=== PATIENT | male | born 1950 | race Caucasian/White ===

== ENCOUNTER → 2019-11-25 | Outpatient (CLI) | payer BC ==
--- NOTE | 2019-11-25 07:37 | US ---
EXAMINATION TYPE: US duplex aorta DATE OF EXAM: 11/25/2019 COMPARISON: NONE CLINICAL HISTORY: I10 essential htn. AAA EXAM MEASUREMENTS: Abdominal Aorta: Proximal: 2.4 x 2.3cm Mid: 2.0 x 2.1cm Distal: 1.7 x 1.8cm Bifurcation: obscured by overlying midline bowel gas Difficult study due to patient body habitus Limited visualization of abdominal aorta, visualized portions appear wnl IMPRESSION: NO AAA
== END | disposition home or self-care (01) ==
LOC: RADUSWWP 07:03
PROVIDERS: ATTEND Physician Assistant
DX: I10 Essential (primary) hypertension (principal)
CPT/HCPCS: 93979

== ENCOUNTER 2022-10-28 16:41 | Emergency (ER) | payer MEDICARE ==
[2022-10-28 16:45] VITALS: BP 161/80; TEMP 97.9
--- NOTE | 2022-10-28 17:19 | XR ---
EXAMINATION TYPE: XR chest 2V DATE OF EXAM: 10/28/2022 COMPARISON: NONE HISTORY: Shortness of breath TECHNIQUE: Frontal and lateral views of the chest are obtained. FINDINGS: Scattered senescent parenchymal changes noted. Hyperinflation compatible with COPD. Increased basilar density may reflect underlying atelectasis or developing infiltrates. Other small e ffusions versus pleural thickening at the costophrenic angles. Heart size is stable. Mediastinal structures are stable and grossly unremarkable. No evidence for hilar prominence. Degenerative changes dorsal spine. IMPRESSION: 1. Increased basilar density may reflect underlying atelectasis or developing infiltrates. Other smal l effusions versus pleural thickening at the costophrenic angles.
[2022-10-28 17:37] LABS: Basophils # (A) 0.1 k/uL (0-0.2); Basophils % (A) 0 %; Eosinophils # (A) 0.1 k/uL (0-0.7); Eosinophils % (A) 1 %; HCT 42.1 % (39.0-53.0); HGB 14.3 gm/dL (13.0-17.5); Lymphocytes # (A) 1.6 k/uL (1.0-4.8); Lymphocytes % (A) 9 %; MCV 97.2 fL (80.0-100.0); Mean Platelet Volume 7.6; Monocytes % (A) 6 %; Neutrophils # (A) 13.5 k/uL (1.3-7.7); Neutrophils % (A) 82 %; Platelet Count 602 k/uL (150-450); RBC 4.33 m/uL (4.30-5.90); RDW 12.7 % (11.5-15.5); WBC 16.4 k/uL (3.8-10.6)
[2022-10-28 17:49] LABS: Albumin 3.7 g/dL (3.5-5.0); Calcium 9.8 mg/dL (8.4-10.2); Total Bilirubin 1.2 mg/dL (0.2-1.3); Total Protein 7.2 g/dL (6.3-8.2)
[2022-10-28 17:56] LABS: Potassium 4.1 mmol/L (3.5-5.1)
--- NOTE | 2022-10-28 17:56 | ED ---
General Adult HPI - General Chief complaint: Chest Pain Stated complaint: chest pain,SOB Time Seen by Provider: 10/28/22 17:55 Source: patient Mode of arrival: ambulatory Limitations: no limitations - History of Present Illness Initial comments: Patient presents to the ED with his and daughter for evaluation. Patient states that he developed a GI illness while camping a little over a week ago, and he states that ever since then, he has had intermittent episodes of chest pain and back pain, as well as dyspnea. Patient admits that he has not been good at taking his nebulizer treatments and Advair at home. Patient states that his diarrhea has improved, but he continues to have loose bowel movements from time to time. Patient denies trauma or injury, fever or chills, headache, focal numbness/weakness/neuro deficit, neck/arm/jaw pain, pleuritic pain, abdominal pain, cough or cold symptoms, palpitations, dizziness, nausea/vomiting/diaphore sis, bloody or melanotic stool, dysuria or urinary symptoms, decreased urine output, leg or calf swelling or pain, or any other symptoms or complaints. - Related Data Home Medications Medication Instructions Recorded Confirmed Albuterol Inhaler [Ventolin Hfa 2 puff INHALATION RT-QID PRN 10/28/22 10/28/22 Inhaler] Chlorthalidone [Hygroton] 25 mg PO DAILY 10/28/22 10/28/22 Fluticasone Propion/Salmeterol 1 puff INHALATION RT-BID 10/28/22 10/28/22 [Wixela 250-50 Inhub] Ipratropium-Albuterol Nebulize 3 ml INHALATION RT-QID 10/28/22 10/28/22 [Duoneb 0.5 mg-3 mg/3 ml Soln] Losartan Potassium 100 mg PO DAILY 10/28/22 10/28/22 amLODIPine [Norvasc] 5 mg PO DAILY 10/28/22 10/28/22 Previous Rx's Medication Instructions Recorded Doxycycline Hyclate 100 mg PO Q12H 7 Days #14 capsule 10/28/22 predniSONE [Deltasone] 20 mg PO BID #10 tab 10/28/22 Allergies Allergy/AdvReac Type Severity Reaction Status Date / Time No Known Allergies Allergy Verified 10/28/22 19:49 Review of Systems ROS Statement: Those systems with pertinent positive or pertinent negative responses have been documented in the HPI. ROS Other: All systems not noted in ROS Statement are negative. Past Medical History Past Medical History: Heart Failure, COPD, Hyperlipidemia, Hypertension History of Any Multi-Drug Resistant Organisms: None Reported Past Surgical History: No Surgical Hx Reported Past Psychological History: No Psychological Hx Reported Smoking Status: Former smoker Past Alcohol Use History: Daily Past Drug Use History: None Reported General Exam Limitations: no limitations General appearance: alert, in no apparent distress Head exam: Present: normocephalic ENT exam: Present: mucous membranes moist Neck exam: Present: other (Trachea is in midline) Respiratory exam: Present: decreased breath sounds, other (Bilateral expiratory wheezes). Absent: respiratory distress, rales, rhonchi, stridor Cardiovascular Exam: Present: regular rate, normal rhythm, normal heart sounds, other (Normal radial pulses bilaterally) GI/Abdominal exam: Present: soft. Absent: distended, tenderness, guarding Extremities exam: Present: other (Negative Homans sign bilaterally). Absent: tenderness, pedal edema, calf tenderness Neurological exam: Present: alert, oriented X3 Psychiatric exam: Present: normal affect, normal mood Skin exam: Present: warm, dry, intact, normal color Course Vital Signs 10/28/22 10/28/22 10/28/22 16:42 18:45 18:53 Temperature 97.9 F Pulse Rate 100 88 89 Respiratory 22 Rate Blood Pressure 161/80 O2 Sat by Pulse 95 Oximetry - Reevaluation(s) Reevaluation #1: 10/28/22 20:44 Patient denies development of any new symptoms while in the ED. Patient remains alert and breathing comfortably with a normal room air oxygen saturation. Patient's wheezing has improved on examination. Patient reports improvement in his dyspnea with the DuoNeb treatment that he was given in the ED. Patient and family are aware of the patient's test results, and they all feel comfortable with the patient being discharged home at this time. They were counseled about chest pain, COPD exacerbations and pneumonia. They were clearly explained return and follow-up instructions. Patient was instructed to follow up closely with his primary care provider. EKG Findings - EKG Comments: EKG Findings:: ED physician interpretation (interpreted by me): Normal sinus rhythm, ventricular rate of 99 bpm, no ectopy, right bundle branch block, normal [place] interval, QRS duration of 142 ms, normal QT interval, normal axis, no ST elevation Medical Decision Making - Medical Decision Making Was pt. sent in by a medical professional or institution (SANIYA Haynes, PROJECT SUPERINTENDENT, urgent care, hospital, or longterm...) When possible be specific @ -No Did you speak to anyone other than the patient for history (EMS, parent, family, police, friend...)? What history was obtained from this source @ -No Did you review nursing and triage notes (agree or disagree)? Why? @ -I reviewed and agree with nursing and triage notes Were old charts reviewed (outside hosp., previous admission, EMS record, old EKG, old radiological studies, urgent care reports/EKG's, longterm records)? Report findings @ -No old charts were reviewed Differential Diagnosis (chest pain, altered mental status, abdominal pain women, abdominal pain men, vaginal bleeding, weakness, fever, dyspnea, syncope, headache, dizziness, GI bleed, back pain, seizure, CVA, palpatations, mental health, musculoskeletal)? @ -Differential Dyspnea: Coronary syndrome, arrhythmia, tamponade, asthma, COPD, pneumonia, pneumothorax, pulmonary effusion, CHF, anemia, neuromuscular, chest pain, muscle strain, costochondritis, GERD, esophagitis, viral illness, this is not meant to be an all-inclusive list. EKG interpreted by me (3pts min.). @ -As above X-rays interpreted by me (1pt min.). @ -Chest x-ray was reviewed myself and shows increased basilar density -> atelectasis versus infiltrates. I agree with the radiologist's interpretation as above. CT interpreted by me (1pt min.). @ -None done U/S interpreted by me (1pt. min.). @ -None done What testing was considered but not performed or refused? (CT, X-rays, U/S, labs)? Why? @ -None What meds were considered but not given or refused? Why? @ -None Did you discuss the management of the patient with other professionals (professionals i.e. SANIYA Haynes, PROJECT SUPERINTENDENT, lab, RT, psych nurse, administrator social welfare, park interpretive ranger, teacher, safety and security officer, cyanide case hardener)? Give summary @ -No Was smoking cessation discussed for >3mins.? @ -No Was critical care preformed (if so, how long)? @ -No Were there social determinants of health that impacted care today? How? (Homelessness, low income, unemployed, alcoholism, drug addiction, transportation, low edu. Level, literacy, decrease access to med. care, alf, rehab)? @ -No Was there de-escalation of care discussed even if they declined (Discuss DNR or withdrawal of care, Hospice)? DNR status @ -No What co-morbidities impacted this encounter? (DM, HTN, Smoking, COPD, CAD, Cancer, CVA, ARF, Chemo, Hep., AIDS, mental health diagnosis, sleep apnea, morbid obesity)? @ -COPD Was patient admitted / discharged? Hospital course, mention meds given and route, prescriptions, significant lab abnormalities, going to OR and other pertinent info. @ -Patient reports improvement in his symptoms with the DuoNeb that he was given in the ED, and patient's wheezing has now improved. Patient is breathing comfortably in the ED with a normal room air oxygen saturation. Patient is afeb rile, but does have an elevated white blood cell count and a chest x-ray that demonstrates possible infiltrates. Given these findings, will treat the patient with a course of doxycycline for possible community-acquired pneumonia. Patient's viral studies are negative. Patient's troponin is negative. I also suspect COPD exacerbation, and patient has been given a dose of prednisone in the ED. Will discharge patient home with a course of prednisone as well. Patient was instructed to, and agrees to, continue taking his albuterol neb treatments at home. Patient and family were counseled about COPD exacerbations, chest pain and pneumonia, and they were clearly explained return and follow-up instructions. Will discharge patient home with his family at this time. Undiagnosed new problem with uncertain prognosis? @ -No Drug Therapy requiring intensive monitoring for toxicity (Heparin, Nitro, Insulin, Cardizem)? @ -No Were any procedures done? @ -No Diagnosis/symptom? @ -Chest pain Acute, or Chronic, or Acute on Chronic? @ -Acute Uncomplicated (without systemic symptoms) or Complicated (systemic symptoms)? @ -default Side effects of treatment? @ -No Exacerbation, Progression, or Severe Exacerbation? @ -No Poses a threat to life or bodily function? How? (Chest pain, [place], [place], pneumonia, PE, COPD, DKA, ARF, appy, cholecystitis, CVA, Diverticulitis, Homicidal, S uicidal, threat to staff... and all critical care pts) @ -No Diagnosis/symptom? @ -COPD exacerbation Acute, or Chronic, or Acute on Chronic? @ -Acute on chronic Uncomplicated (without systemic symptoms) or Complicated (systemic symptoms)? @ -default Side effects of treatment? @ -none Exacerbation, Progression, or Severe Exacerbation] @ -Exacerbation Poses a threat to life or bodily function? @ -no Diagnosis/symptom? @ -Possible pneumonia Acute, or Chronic, or Acute on Chronic? @ -Acute Uncomplicated (without systemic symptoms) or Complicated (systemic symptoms)? @ -default Side effects of treatment? @ -none Exacerbation, Progression, or Severe Exacerbation @ -no Poses a threat to life or bodily function? @ -no - Lab Data Result diagrams: 10/28/22 17:13 10/28/22 17:13 Lab Results 10/28/22 10/28/22 10/28/22 Range/Units 17:13 17:13 17:13 WBC 16.4 H (3.8-10.6) k/uL RBC 4.33 (4.30-5.90) m/uL Hgb 14.3 (13.0-17.5) gm/dL Hct 42.1 (39.0-53.0) % MCV 97.2 (80.0-100.0) fL MCH 33.0 (25.0-35.0) pg MCHC 34.0 (31.0-37.0) g/dL RDW 12.7 (11.5-15.5) % Plt Count 602 H (150-450) k/uL MPV 7.6 Neutrophils % 82 % Lymphocytes % 9 % Monocytes % 6 % Eosinophils % 1 % Basophils % 0 % Neutrophils # 13.5 H (1.3-7.7) k/uL Lymphocytes # 1.6 (1.0-4.8) k/uL Monocytes # 1.0 (0-1.0) k/uL Eosinophils # 0.1 (0-0.7) k/uL Basophils # 0.1 (0-0.2) k/uL PT 11.4 (9.0-12.0) sec INR 1.1 (<1.2) APTT 25.1 (22.0-30.0) sec Sodium 136 L (137-145) mmol/L Potassium 4.1 (3.5-5.1) mmol/L Chloride 95 L (98-107) mmol/L Carbon Dioxide 29 (22-30) mmol/L Anion Gap 12 mmol/L BUN 29 H (9-20) mg/dL Creatinine 1.25 (0.66-1.25) mg/dL Est GFR (CKD-EPI)AfAm 68 (>60 ml/min/1.73 sqM) Est GFR (CKD-EPI)NonAf 58 (>60 ml/min/1.73 sqM) Glucose 170 H (74-99) mg/dL Plasma Lactic Acid Yvan (0.7-2.0) mmol/L Calcium 9.8 (8.4-10.2) mg/dL Magnesium 1.5 L (1.6-2.3) mg/dL Total Bilirubin 1.2 (0.2-1.3) mg/dL AST 46 (17-59) U/L ALT 58 H (4-49) U/L Alkaline Phosphatase 72 (38-126) U/L Troponin I (0.000-0.034) ng/mL Total Protein 7.2 (6.3-8.2) g/dL Albumin 3.7 (3.5-5.0) g/dL Influenza Type A (PCR) (Not Detectd) Influenza Type B (PCR) (Not Detectd) RSV (PCR) (Not Detectd) SARS-CoV-2 (PCR) (Not Detectd) 10/28/22 10/28/22 10/28/22 Range/Units 17:13 18:05 18:05 WBC (3.8-10.6) k/uL RBC (4.30-5.90) m/uL Hgb (13.0-17.5) gm/dL Hct (39.0-53.0) % MCV (80.0-100.0) fL MCH (25.0-35.0) pg MCHC (31.0-37.0) g/dL RDW (11.5-15.5) % Plt Count (150-450) k/uL MPV Neutrophils % % Lymphocytes % % Monocytes % % Eosinophils % % Basophils % % Neutrophils # (1.3-7.7) k/uL Lymphocytes # (1.0-4.8) k/uL Monocytes # (0-1.0) k/uL Eosinophils # (0-0.7) k/uL Basophils # (0-0.2) k/uL PT (9.0-12.0) sec INR (<1.2) APTT (22.0-30.0) sec Sodium (137-145) mmol/L Potassium (3.5-5.1) mmol/L Chloride (98-107) mmol/L Carbon Dioxide (22-30) mmol/L Anion Gap mmol/L BUN (9-20) mg/dL Creatinine (0.66-1.25) mg/dL Est GFR (CKD-EPI)AfAm (>60 ml/min/1.73 sqM) Est GFR (CKD-EPI)NonAf (>60 ml/min/1.73 sqM) Glucose (74-99) mg/dL Plasma Lactic Acid Yvan 1.5 (0.7-2.0) mmol/L Calcium (8.4-10.2) mg/dL Magnesium (1.6-2.3) mg/dL Total Bilirubin (0.2-1.3) mg/dL AST (17-59) U/L ALT (4-49) U/L Alkaline Phosphatase (38-126) U/L Troponin I <0.012 (0.000-0.034) ng/mL Total Protein (6.3-8.2) g/dL Albumin (3.5-5.0) g/dL Influenza Type A (PCR) Not Detected (Not Detectd) Influenza Type B (PCR) Not Detected (Not Detectd) RSV (PCR) Not Detected (Not Detectd) SARS-CoV-2 (PCR) Not Detected (Not Detectd) - Radiology Data Chest x-ray: Increased basilar density may reflect underlying atelectasis or developing infiltrates. Other small effusions versus pleural thickening at the costophrenic angles. Disposition Clinical Impression: COPD exacerbation, Dyspnea, Chest pain Narrative: Possible pneumonia Disposition: HOME SELF-CARE Condition: Stable Instructions (If sedation given, give patient instructions): Chest Pain (ED), COPD (Chronic Obstructive Pulmonary Disease) (ED), Bacterial Pneumonia (ED) Additional Instructions: Return to the ER immediately should you develop new or worsening pain, increased shortness of breath, a fever, vomiting, feeling dizzy or faint, or new or worsening symptoms. Follow up closely with your primary care provider. Prescriptions: predniSONE [Deltasone] 20 mg PO BID #10 tab Doxycycline Hyclate 100 mg PO Q12H 7 Days #14 capsule Is patient prescribed a controlled substance at d/c from ED?: No Referrals: Wesly Maloney MD [STAFF PHYSICIAN] - 1-2 days Time of Disposition: 20:57
[2022-10-28 17:57] LABS: Magnesium 1.5 mg/dL (1.6-2.3)
[2022-10-28 18:25] LABS: INR 1.1 (<1.2); Prothrombin Time 11.4 sec (9.0-12.0)
[2022-10-28 18:26] LABS: Partial Thromboplastin Time 25.1 sec (22.0-30.0)
[2022-10-28] MEDS ORDERED: IPRATROPIUM-ALBUTEROL 3 ML NEB INHALATION STA (18:38)
[2022-10-28] MEDS ORDERED: predniSONE 20 MG TAB PO STA (18:38)
[2022-10-28] MEDS ORDERED: ASPIRIN 81 MG PO STA (18:46)
[2022-10-28] MEDS ORDERED: DOXYCYCLINE 100 MG CAP PO STA (20:43)
[2022-10-28 21:11] VITALS: PULSE 87; RESP 16
== END 2022-10-28 21:11 | disposition home or self-care (01) ==
LOC: EC 16:41
DX: J44.1 Chronic obstructive pulmonary disease with (acute) exacerbation (principal); R07.9 Chest pain, unspecified; I10 Essential (primary) hypertension; Z87.891 Personal history of nicotine dependence; Z20.822 Contact with and (suspected) exposure to COVID-19; Z79.51 Long term (current) use of inhaled steroids; Z79.899 Other long term (current) drug therapy
CPT/HCPCS: 36415; 94640; 93005; 80053; 83605; 83735; 84484; 85025; 85610; 85730; 87040; 87636; 71046; 99285; J7512

== ENCOUNTER 2023-07-03 08:10 | Day surgery (SDC) | payer MEDICARE ==
[2023-06-27 15:48] VITALS: BMI 29.1
[~2023-07-03 08:10] MED LIST: LIDOCAINE 1% (10MG/ML) FOR IV START INTRADERMA PRN
[2023-07-03] MEDS: LACTATED RINGERS 1,000 ML IV SCH (08:30)
[2023-07-03 09:06] VITALS: RESP 16; TEMP 98.6
[2023-07-03] MEDS ORDERED: PROPOFOL 10 MG/ML 20 ML VIAL IV ONE (09:22)
--- NOTE | 2023-07-03 09:38 | P.PCN ---
Date of Procedure: 07/03/23 Procedure(s) Performed: BRIEF HISTORY: Patient is a 73-year-old pleasant white male scheduled for an elective colonoscopy as a part of screening for colon cancer. His colonoscopy was 10 years ago. PROCEDURE PERFORMED: Colonoscopy with biopsy. PREOPERATIVE DIAGNOSIS: Screening for colon cancer. IV sedation per Anesthesia. PROCEDURE: After informed consent was obtained, the patient, was brought into the endoscopy unit. IV sedation was administered by Anesthesia under continuous monitoring. Digital rectal examination was normal. Initially the Olympus CF-160 flexible video colonoscope was then inserted in the rectum, gradually advanced into the cecum without any difficulty. Careful examination was performed as the scope was gradually being withdrawn. Ileocecal valve and the appendiceal orifice were visualized and appeared normal. Prep was excellent. Mucosa of the cecum, ascending colon, transverse colon, descending colon, a normal. In the sigmoid colon there with the 2 polyps measuring 7 mm size both of which were removed by cold biopsy. In the rectum there was a 5 mm polyp that was removed by biopsy. Rest of the sigmoid colon, and rectum appeared normal. Retroflexion was performed in the rectum and no lesions were seen. The patient tolerated the procedure well. IMPRESSION: 3 mm 2; sigmoid polyp status post cold biopsy 5 mm rectal polyp status post cold biopsy RECOMMENDATIONS: Findings of this examination were discussed with the patient as well as a family. He was advised to follow with the biopsy results. If the biopsy results adenoma he can have a repeat colonoscopy in 5 years
[2023-07-03 10:35] VITALS: BP 128/84; PULSE 83
== END 2023-07-03 10:26 | disposition home or self-care (01) ==
LOC: ORWHC2ENDO 08:10
PROVIDERS: ATTEND Internal Medicine Gastroenterology
DX: Z12.11 Encounter for screening for malignant neoplasm of colon (principal); K62.1 Rectal polyp; I11.0 Hypertensive heart disease with heart failure; I50.9 Heart failure, unspecified; E78.5 Hyperlipidemia, unspecified; J44.9 Chronic obstructive pulmonary disease, unspecified; Z88.0 Allergy status to penicillin; Z88.2 Allergy status to sulfonamides; Z88.1 Allergy status to other antibiotic agents; Z79.51 Long term (current) use of inhaled steroids; Z79.899 Other long term (current) drug therapy
CPT/HCPCS: 88305; 45380; J2704

== ENCOUNTER → 2024-08-29 | Outpatient (CLI) | payer MEDICARE ==
[2024-08-29 16:49] LABS: Albumin 3.5 g/dL (3.8-4.9); BUN/Creat Ratio 13.17 Ratio (12.00-20.00); Blood Urea Nitrogen 7.9 mg/dL (9.0-27.0); Calcium 9.7 mg/dL (8.7-10.3); Carbon Dioxide 30.1 mmol/L (21.6-31.8); Chloride 97 mmol/L (96-109); Glucose 110 mg/dL (70-110); Phosphorus 3.2 mg/dL (2.4-5.1); Potassium 4.3 mmol/L (3.5-5.5); Sodium 138 mmol/L (135-145)
[2024-08-29 16:56] LABS: NT-Pro-B-Type Natriuretic Pept 221 pg/mL (0-125)
== END | disposition home or self-care (01) ==
LOC: LABWHC1 07:31
PROVIDERS: ATTEND Internal Medicine
DX: I50.9 Heart failure, unspecified (principal)
CPT/HCPCS: 36415; 80069; 83880

== ENCOUNTER → 2024-09-03 | Outpatient (CLI) | payer MEDICARE ==
--- NOTE | 2024-09-04 11:01 | CA ---
Transthoracic Echo Report Name: Andreas Flor Age: 74 Gender: M : 1950 Exam Date: 09/03/2024 15:19 Exam Location: [facility] Ht (in): 65 Wt (lb): 160 Ordering Physician: Francisco Hernandez MD Attending/Referring Phys: Francisco Hernandez MD Transformation Manager Roberta Garcia RDCS Procedure CPT: Indications: I50.9 HEART FAILURE, UNSPECIFIED Cardiac Hx: Technical Quality: Good Contrast 1: Total Dose (mL): Contrast 2: Total Dose (mL): MEASUREMENTS (Male / Female) Normal Values 2D ECHO LV Diastolic Diameter PLAX 4.2 cm 4.2 - 5.9 / 3.9 - 5.3 cm LV Systolic Diameter PLAX 2.9 cm IVS Diastolic Thickness 1.3 cm 0.6 - 1.0 / 0.6 - 0.9 cm LVPW Diastolic Thickness 1.2 cm 0.6 - 1.0 / 0.6 - 0.9 cm LV Relative Wall Thickness 0.6 RV Internal Dim ED PLAX 3.7 cm LA Systolic Diameter LX 3.8 cm 3.0 - 4.0 / 2.7 - 3.8 cm LV Diastolic Volume MOD 4C 70.7 cm??? LV Systolic Volume MOD 4C 28.6 cm??? LV Ejection Fraction MOD 4C 59.6 % LV Cardiac Index MOD 4C 2129.3 cm???/min???m??? LV Diastolic Length 4C 8.7 cm LV Systolic Length 4C 7.1 cm LV Diastolic Volume MOD 2C 97.7 cm??? LV Systolic Volume MOD 2C 47.6 cm??? LV Ejection Fraction MOD 2C 51.3 % LV Cardiac Index MOD 2C 2531.2 cm???/min???m??? LV Diastolic Length 2C 8.3 cm LV Systolic Length 2C 6.3 cm M-MODE Aortic Root Diameter MM 3.5 cm DOPPLER AV Peak Velocity 141.3 cm/s AV Peak Gradient 8.0 mmHg Mitral E Point Velocity 10.0 cm/s Mitral A Point Velocity 7.2 cm/s Mitral E to A Ratio 1.4 MV Deceleration Time 106.8 ms MV E' Velocity 10.4 cm/s Mitral E to MV E' Ratio 1.0 TR Peak Velocity 273.1 cm/s TR Peak Gradient 29.8 mmHg Right Ventricular Systolic Press 39.8 mmHg FINDINGS Left Ventricle Left ventricular ejection fraction is estimated at 50-55 %. Left ventricular cavity size normal. Mildly increased septal wall thickness. Normal left ventricular wall motion. Right Ventricle Mild right ventricular dilatation. Mild pulmonary hypertension. Right Atrium Normal right atrial size. No right atrial thrombus or mass seen. Left Atrium Normal left atrial size. No left atrial thrombus or mass present. Mitral Valve Structurally normal mitral valve. No evidence for mitral valve prolapse. No mitral stenosis. Trace mitral regurgitation. Aortic Valve Trileaflet aortic valve. Thickened aortic valve without stenosis. No aortic regurgitation. Tricuspid Valve Structurally normal tricuspid valve. Mild tricuspid regurgitation. Pulmonic Valve Structurally normal pulmonic valve. Trace pulmonic regurgitation. Pericardium No pericardial effusion. Aorta Normal size aortic root and proximal ascending aorta. CONCLUSIONS Normal biventricular systolic function Aortic sclerosis with no stenosis or insufficiency Mild MR No pericardial effusion Mild pulmonary hypertension Previewed by: Dr. Leopoldo August MD (Electronically Signed) Final Date: 04 September 2024 11:00
== END | disposition home or self-care (01) ==
LOC: RADECHMAIN 14:58
PROVIDERS: ATTEND Emergency Medicine
DX: I50.9 Heart failure, unspecified (principal); I27.20 Pulmonary hypertension, unspecified; I70.0 Atherosclerosis of aorta
CPT/HCPCS: 93306